=== PATIENT | male | born 2000 | race African-American/Black ===

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

== ENCOUNTER 2022-02-03 09:40 | Emergency (ER) | payer OTHER ==
[2022-02-03 09:51] VITALS: BP 118/76; PULSE 65; TEMP 98; BMI 36.9
[2022-02-03] MEDS ORDERED: ASPIRIN 81 MG CHEWABLE TABLETS PO ONE (10:40)
[2022-02-03] MEDS ORDERED: ASPIRIN 81 MG CHEWABLE TABLETS ONE (10:53)
[2022-02-03 11:28] LABS: BASO % 0.3 % (0-2.0); EOS % 0.7 % (0-4.5); HEMATOCRIT 45.5 % (35.4-49); LYMPH % 6.3 % (8-40); MCHC 35.1 g/dl (32.0-35.9); MEAN CELL VOLUME 88.3 fl (80-96); MEAN PLT VOLUME 8.3 fl (7.5-11.1); MONO % 10.4 % (3.8-10.2); NEUT % 82.3 % (42.8-82.8); PLATELET COUNT 264 10^3/uL (134-434); RBC 5.15 M/mm3 (4.00-5.60); RDW 12.8 % (11.9-15.9); WHITE BLOOD COUNT 12.4 K/mm3 (4.0-10.0)
[2022-02-03 11:47] LABS: ACTIVATED PTT 34.9 SECONDS (25.2-36.5); INR 1.13 (0.83-1.09)
[2022-02-03 11:58] LABS: ALBUMIN 4.9 g/dl (3.4-5.0); CALCIUM 9.2 mg/dL (8.5-10.1)
[2022-02-03 11:59] LABS: BLOOD UREA NITROGEN 8.9 mg/dL (7-18); MAGNESIUM 2.1 mg/dL (1.8-2.4)
[2022-02-03 12:03] LABS: BILIRUBIN,TOTAL 0.9 mg/dL (0.2-1); TOT PROT 8.6 g/dl (6.4-8.2)
[2022-02-03 12:08] LABS: N-TERMINAL BNP 100.4 pg/ml (5-125)
[2022-02-03] MEDS ORDERED: IBUPROFEN 600 MG TABLET (FP) PO ONE ×2 (12:12→12:18)
[2022-02-03 14:46] LABS: CHOLESTEROL 185 mg/dL (50-200); TRIGLYCERIDES 47 mg/dL (0-150)
[2022-02-03 14:47] LABS: LDL CHOLESTEROL (ONLY SJRH) 126 mg/dL (5-100)
[2022-02-03 14:49] LABS: HDL CHOLESTEROL 51 mg/dL (40-60)
== END 2022-02-03 14:30 | disposition home or self-care (01) ==
LOC: JER 09:40
DX: I30.9 Acute pericarditis, unspecified (principal)
CPT/HCPCS: 36415; 71046-TC-FY; 80053; 80061; 83690; 83735; 83880; 84484; 85025; 85379; 85610; 85730; 93005; 93010; 99285-25